=== PATIENT | male | born 1985 | race Caucasian/White ===

== ENCOUNTER 2025-03-05 01:49 | Day surgery (SDC) | payer OTHER, SELFPAY ==
[2025-02-25 10:51] VITALS: BMI 24.4
--- NOTE | 2025-02-25 11:00 | PC.NURSE ---
[facility] has started construction of its new state of the art ER which will open Spring 2026. With this, we anticipate parking may be a challenge for some our surgical patients and families. Parking spaces are limited but are available for all Surgical, obstetrics, and ER patients sharing this lot. If you arrive and find you are having a hard time finding a parking space, please note that we understand the challenges, please drive around the hospital and park near Hospital Entrance 1. When you enter this entrance, you can ask a volunteer to direct or take you back to the surgical waiting area to check in. We appreciate everyone?s understanding of these expected challenges while we build for your future. Report to the Outpatient Waiting Room, entrance under the green pavilion located off [address], at time _1230_ on date _[phone]_. Planned Procedure Time: _230pm_.? Time changes happen often and if your time is changed the preop area will call you the afternoon before. - You and your visitor will be asked to self-screen and do not enter if you have any COVID symptoms. Please call surgeon if you need to reschedule. - A mask is optional within the hospital at this time. Patients may have clear liquids (water, carbonated beverages, clear teas, apple juice) until 3 hours prior to surgery with a maximum of 20 ounces. - No food from midnight until time of surgery and no smoking, or chewing tobacco (or any form of nicotine). No chewing gum, candy or mints. Take only the following medications with a SIP of water on the morning of surgery: ___None____ DO NOT STOP ANY OF YOUR OTHER PRESCRIPTION MEDICATIONS PRIOR TO SURGERY EXCEPT THE FOLLOWING Hold all vitamins and supplements for 3 days per anesthesiologist. Medications to discontinue per physician Patient says is stopping Ibuprofen 1 week before surgery per Dr Gardner instruction. Date to take last dose Please no make-up, nail [place] citizen, hairspray, perfume, deodorant, or body powder the day of surgery.? No jewelry (including any body piercings) or valuables the day of surgery, leave them at home.? Please take a shower or bath the night before, or the morning of, surgery with an antibacterial soap.? Wear comfortable, loose fitting clothing.? - Jewelry must be removed prior to entering the operating room.? Rings and piercings that are not removed may be cut off. - The hospital will not accept responsibility for valuables.? - Please leave all valuables, including medications, at home the day of surgery. If you are going home after surgery, a licensed tank driver must drive you home.? - NO public transportation without another adult if you receive anesthesia. - We recommend that an adult stay with you for 24 hours following discharge. - We also recommend that you do not drive, make important decision, drink alcoholic beverages, or take any drugs that were not prescribed by your health care provider for at least 24 hours after your discharge time. Follow any additional instructions given to you from your surgeon. Telephone instructions given to _Tim__and asked if any additional questions and then verbalized understanding. Patient advised to call surgeon office or pre surgery nurse liaison [phone] if any additional questions.
--- OUTSIDE RECORDS SUMMARY | 2025-03-05 01:53 | XMS_ITS | Clinical Summary ---
Author Organization [facility] Address [address] [place] [address] Care Team Providers Care Breakfast Host Name Role Phone Unavailable Primary Care Provider Unavailabl e Encounters Date Type Department Care Team Description 02/10/2025 External Device Data [facility] Provider, Abstract 02/09/2025 External Device Data [facility] Provider, Abstract 12/22/2024 External Device Data [facility] Provider, Abstract from Last 3 Months Social History Tobacco Use Types Packs/Day Years Used Date Smoking Tobacco: Never Assessed Sex and Gender Information Value Date Recorded Sex Assigned at Not on file Legal Sex Male 11:54 AM [employer] Gender Identity Not on file Sexual Orientation Not on file Plan of Treatment Health Maintenance Due Date Last Done Comments DTAP/TDAP/TD VACCINES (6 - T d or Tdap) 10/12/2015 10/11/2005, 06/14/1999, 06/24/1992, Additional history exists INFLUENZA VACCINE (#1) 2024 , 02/13/2021, 01/22/2020, Additional history exists COVID-19 Vaccine (2024- 6 season) 2024 03/18/2021, 07/07/2020, 04/22/2020 HEPATITIS B VACCINES Completed 04/26/1999, 01/20/1999, 11/24/1998 HPV VACCINES Completed 10/14/2019, 09/13, 05/28/2013 Insurance [employer]
--- NOTE | 2025-03-05 07:01 | WPDHPUPDATE1 ---
History and Physical Update Update Date/Time: 03/05/25 07:01 History and Physical has been reviewed, including an updated exam of the patient. There are NO changes in the patient's condition. Risks, benefits, and alternatives have been discussed and questions answered. Patient agrees to proceed with procedure.
[2025-03-05 12:20] VITALS: BP 109/69; PULSE 56; RESP 16; TEMP 36.6; O2SAT 100; BMI 24.8
[2025-03-05] MEDS: LACTATED RINGERS 1,000 ML 30 ML IV CONT (12:50)
--- NOTE | 2025-03-05 14:38 | WPDANESEPPF ---
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 Patient Data Age: 39 Gender: M Height: 1.85 m Weight: 85.5 kg Last Vital Signs Temp 36.6 C 03/05/25 12:20 Pulse 56 L 03/05/25 12:20 Resp 16 03/05/25 12:20 BP 109/69 03/05/25 12:20 Pulse Ox 100 03/05/25 12:20 Allergies Allergy/AdvReac Type Severity Reaction Status Date / Time No Known Allergies Allergy Verified 03/05/25 14:03 Home Medications ?Medication ?Instructions ?Recorded ?Confirmed ?Type famotidine 40 mg tablet 40 mg PO Q12H 02/25/25 02/25/25 History ibuprofen 200 mg tablet (Advil) 200 mg PO Q6H PRN pain 02/25/25 02/25/25 History oxycodone-acetaminophen 5 mg-325 1 tablet PO Q4H PRN pain #30 tabs 03/03/25 Rx mg tablet (Percocet) Patient hx anesthesia problems: none Family hx anesthesia problems: none Results Review: All pre-operative results and documents have been reviewed as part of the pre-operative evaluation. [facility] Social History Social History Smoking status: Never smoker Living arrangements: with family Spiritual care concerns: No Anes - Eval Final PreProcedure Day of Procedure 03/05/25 14:38 Patient weight: normal Heart: regular rate and rhythm Lungs: clear to auscultation and normal air movement Airway: Mallampati scale class 1 Neurological: alert and oriented Last oral intake: >/= 8 hours ASA classification: II Emergent: no Anesthetic plan: proceed Anesthesia type and monitoring: general GIVS and standard monitoring Results Review: All pre-operative results and documents have been reviewed as part of the pre-operative evaluation. Informed Consent: The patient's anesthetic plan and its attendant risks and benefits were discussed with the patient/family/POA. Questions were solicited and answers provided to the satisfaction of the patient/family/POA.
[2025-03-05] MEDS: ceFAZolin 2 GM in SODIUM CHLORIDE 0.9% IV 50 ML 100 ML IVPB (15:04)
[2025-03-05] MEDS: LIDOCAINE 2% LOCAL INJ 20 ML VIAL 10 ML INFILTRATE (15:21)
--- NOTE | 2025-03-05 15:28 | S_PTH ---
PATIENT: Tim Bradford LOC: [facility] U#:[id number] AGE/SX: 39/M ROOM: RE03/05/[address]: Homer Gardner Jr., DPM : 1985 BED: DIS: 03/05/2025 SPEC #: [id number] RECD: 03/08/25 07:50 STATUS: HELEN SNEED #: [id number] PENELOPE: 03/05/25 15:[address]: Homer Gardner Jr. DEPT: [facility] Surgical RECD BY: Ree Garay ENTERED: 03/08/25 07:50 SP TYPE: Surgical OTHR DR: S[facility] Tissues: A - Soft Tissue Procedures: Hematoxylin and Eosin Stain Gross and Microscopic Level 3
[2025-03-05 15:49] VITALS: BP 103/59; PULSE 46
--- NOTE | 2025-03-05 15:49 | P.OP_ITS ---
Procedure Note - Detailed Date of Procedure 03/05/25 Pre-op Diagnosis Jim's Neuroma Left Foot Post-op Diagnosis Same Procedure Performed Excision of Jim's Neuroma left foot Surgeon Homer Gardner Jr., DPM Anesthesia MAC and Local Indications Painful left forefoot in between the third interdigital space Description of Procedure Under mild sedation, the patient was brought in to the operating room, placed on the operating table in the supine position. A pneumatic ankle tourniquet was placed about the patient's left ankle. Following IV sedation, local anesthesia was obtained about the ankle utilizing 20 mL of 0.5% Marcaine plain and 2% Lidocaine plain to with an ankle ring block. The foot was then scrubbed, prepped, and draped in the usual aseptic manner. An Esmarch bandage was then used to exsanguinate the patient's foot and the pneumatic ankle tourniquet was then inflated. An incision was made along the dorsal 3rd inter metatarsal space. All bleeders were cauterized as necessary. The Deep transverse intermetatarsal ligament was severed. Next, dissection was continued deep to the proper digital plantar nerve which was hypertrophied and amorphous. It was dissected proximal to the central metatarsal shaft area and transected next the distal branches were dissected and transected to the affected third and fourth digits. The neural tissue was sent for gross and histopathology. The deep subcutaneous tissue was reapproximated with 4.0 Vicryl and the skin was reapproximated with 4.0 Monocryl. Upon completion of the procedure, the dorsal incision was dressed with Steri- Strips, Adaptic, 4x4s, Kerlix, and Coban. The pneumatic ankle tourniquet was then deflated and a prompt hyperemic response was noted to all digits of the affected foot. A CAM walker boot will be applied in PACU. The patient did very well with the procedure and the anesthesia. The patient was transferred to the recovery room with vital signs stable and vascular status intact to all toes of the affected foot. Following a period of postoperative monitoring, the patient will be discharged home on the following written and oral postoperative instructions: 1. The patient should keep the dressing clean, dry, and intact. Use a cast protector bag with showers. 2. The patient will be strictly protected weight bearing with a CAM Walker boot. 3. Patient should ice and elevate the foot when at rest. 4. The patient is to contact Dr. Gardner for all postop care and if any problems arise. 5. Prescriptions were written for Percocet 5/325 dispensed 40 to be taken 1 p.o. q.4-6 hours as needed for severe pain. 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
[2025-03-05 16:19] VITALS: BP 101/57; PULSE 45
[2025-03-05 16:49] VITALS: BP 114/56; PULSE 53
[2025-03-05] MEDS: oxyCODONE HCL (*CRX) 5 MG TAB IR PO (17:05)
[2025-03-05 17:09] VITALS: BP 110/60; PULSE 56
== END 2025-03-05 17:11 | disposition home or self-care (01) ==
PROVIDERS: Visit Provider Podiatrist Foot & Ankle Surgery
PROC: (CPT 28080; principal; 2025-03-05 14:30)
DX: G57.82 Other specified mononeuropathies of left lower limb (principal); G57.62 Lesion of plantar nerve, left lower limb; Z79.1 Long term (current) use of non-steroidal anti-inflammatories (NSAID); Z79.891 Long term (current) use of opiate analgesic
CPT/HCPCS: 28080; 88304; J0690; A9270; J2003; J2704; J3010; J7120